=== PATIENT | male | born 1995 | race Caucasian/White ===

== ENCOUNTER 2017-12-02 13:17 | Emergency (ER) | payer MEDICARE, MEDICAID ==
[~2017-12-02] VITALS: Ht 172.7 cm; Wt 89.3 kg
[2017-12-02 13:19] VITALS: BP 138/73
== END 2017-12-02 14:29 | disposition home or self-care (01) ==
LOC: ED 14:23
DX: J20.8 Acute bronchitis due to other specified organisms (principal); J00 Acute nasopharyngitis [common cold]; B97.89 Other viral agents as the cause of diseases classified elsewhere; K21.9 Gastro-esophageal reflux disease without esophagitis
CPT/HCPCS: 71046; 99284; J7512

== ENCOUNTER 2018-01-31 13:08 | Emergency (ER) | payer MEDICARE, MEDICAID ==
[~2018-01-31] VITALS: Ht 172.7 cm; Wt 89.0 kg
[2018-01-31 15:43] VITALS: BP 118/55
== END 2018-01-31 15:46 | disposition home or self-care (01) ==
LOC: ED 15:40
DX: S83.92XA Sprain of unspecified site of left knee, initial encounter (principal); X50.1XXA Overexertion from prolonged static or awkward postures, initial encounter; Y93.89 Activity, other specified; Y99.8 Other external cause status; Y92.009 Unspecified place in unspecified non-institutional (private) residence as the place of occurrence of the external cause
CPT/HCPCS: 99284

== ENCOUNTER 2019-06-04 16:31 | Emergency (ER) | payer MEDICARE, MEDICAID ==
[~2019-06-04] VITALS: Ht 172.7 cm; Wt 79.4 kg
[2019-06-04 16:44] VITALS: BP 145/76
--- NOTE | 2019-06-04 17:51 | NUR ---
Patient given discharge instructions and they have confirmed that they understand the instructions. Patient ambulatory with steady gait.
== END 2019-06-04 17:52 | disposition home or self-care (01) ==
LOC: ED 16:58
DX: S83.92XA Sprain of unspecified site of left knee, initial encounter (principal); F17.200 Nicotine dependence, unspecified, uncomplicated; X58.XXXA Exposure to other specified factors, initial encounter; Y93.89 Activity, other specified; Y92.89 Other specified places as the place of occurrence of the external cause; Y99.8 Other external cause status
CPT/HCPCS: 99283